=== PATIENT | female | born 1990 ===

== ENCOUNTER 2022-07-07 06:47 | Day surgery (SDC) | payer OTHER ==
[~2022-07-07] VITALS: Ht 160 cm; Wt 57.6 kg
[~2022-07-07 06:47] MED LIST: D3 + K2 DOTS 11 EACH PO; IRON325 MG PO; LOESTRIN FE 1.1 EACH PO; MAGNESIUM400 M1 PO; MULTIPLE VITAM1 EAC2 PO; VITAMIN C500 M6 PO; ZYRTEC10 M3 PO
[2022-07-07] MEDS ORDERED: IBU800 MG PO (09:46)
== END 2022-07-07 11:55 | disposition home or self-care (01) ==
LOC: CIR.AMB 06:47
PROVIDERS: ATTEND Obstetrics & Gynecology
DX: N93.9 Abnormal uterine and vaginal bleeding, unspecified (principal); N84.0 Polyp of corpus uteri; N72 Inflammatory disease of cervix uteri; N88.8 Other specified noninflammatory disorders of cervix uteri; D25.9 Leiomyoma of uterus, unspecified; Z20.822 Contact with and (suspected) exposure to COVID-19; Z86.16 Personal history of COVID-19